=== PATIENT | male | born 1980 | race Caucasian/White ===

== ENCOUNTER 2023-02-03 17:29 | Outpatient (CLI) | payer MEDICAID | END 2023-02-03 17:30 | disposition critical access hospital (66) | LOC: EMS 17:29 | DX: Z04.6 Encounter for general psychiatric examination, requested by authority (principal) | CPT/HCPCS: A0425; A0429; A0999 ==

== ENCOUNTER 2023-02-03 17:48 | Emergency (ER) | payer MEDICAID ==
--- NOTE | 2023-02-03 17:58 | ED Physician Documentation ---
History of Present Illness - Stated complaint Stated Complaint: ETOH/ SZ - History obtained from History obtained from: Patient, EMS - History of Present Illness Pain level max: 0 Pain level now: 0 - Additonal information Additional information: Patient is a 42-year-old male who is brought in by EMS. He reportedly has a longstanding history of alcoholism. He states that a friend brought him from [place] to [place] and dropped him off at [facility]. He states that they would not let him inside so he apparently threw an object at the door and left. The police found him on the sidewalk. They called 911 to have him brought here. There was a question of potential seizure activity, but the patient did not have any postictal period. Patient states that he has a history of seizures and he is supposed to be on Keppra but has not taken his medications. He states he has a history of opiate abuse and is supposed to be on Suboxone. He states he does not want to go to rehab but he wants to go to detox. 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 He states he has never met his honing machine operator or spoken to his honing machine operator. Review of Systems Unable to obtain: Intoxicated PD PAST MEDICAL HISTORY - Past Medical History Past Medical History: Yes Neuro: Seizure disorder - Allergies Allergies/Adverse Reactions: Allergies Allergy/AdvReac Type Severity Reaction Status Date / Time morphine Allergy Unknown Verified 02/03/23 18:03 - Living Situation Living Arrangement: reports: Unknown - Social History Does the pt drink ETOH?: Yes Does the pt have substance abuse?: Yes Substance Use and Type: Meth - Family History Family history: reports: Non contributory PD ED PE NORMAL - Vitals Vital signs reviewed: Yes - General General: Alert and oriented X 3, No acute distress, Well developed/nourished, Other (Intoxicated) - HEENT HEENT: Atraumatic, PERRL, Moist mucous membranes, Pharynx benign - Neck Neck: Supple, no meningeal sign, No bony TTP - Cardiac Cardiac: RRR - Respiratory Respiratory: No respiratory distress, Clear bilaterally - Abdomen Abdomen: Soft, Non tender, Non distended - Derm Derm: Warm and dry - Extremities Extremities: No tenderness to palpate - Neuro Neuro: Alert and oriented X 3, linen sorter 2-12 intact, No motor deficit, No sensory deficit, Normal speech Eye Opening: Spontaneous Motor: Obeys Commands Verbal: Oriented GCS Score: 15 Results - Vitals Vitals: Vital Signs - 24 hr 02/03/23 02/03/23 18:00 20:42 Temperature 37 C Heart Rate 98 80 Respiratory 14 13 Rate Blood Pressure 115/70 126/71 O2 Saturation 98 100 Oxygen O2 Source Room air - Labs Labs: Laboratory Tests 02/03/23 02/03/23 02/03/23 18:00 18:03 18:03 WBC 9.4 RBC 4.36 L Hgb 12.1 L Hct 37.9 L MCV 86.9 MCH 27.8 MCHC 31.9 L RDW 14.3 Plt Count 506 H MPV 8.5 Neut # (Auto) 5.3 Lymph # (Auto) 2.8 [place] # (Auto) 1.1 H Eos # (Auto) 0.1 Baso # (Auto) 0.1 Absolute Nucleated RBC 0.00 Nucleated RBC % 0.0 Sodium 135 Potassium 3.7 Chloride 97 L Carbon Dioxide 24 Anion Gap 14.0 H BUN 11 Creatinine 0.7 Estimated GFR (MDRD) 123 Glucose 103 H Calcium 9.0 Total Bilirubin 1.0 AST 48 H ALT 25 Alkaline Phosphatase 83 Total Protein 7.4 Albumin 4.1 Globulin 3.3 Albumin/Globulin Ratio 1.2 Lipase 30 TSH Urine Color YELLOW Urine Clarity CLEAR Urine pH 6.0 Ur Specific Fossil <=1.005 Urine Protein NEGATIVE Urine Glucose (UA) NEGATIVE Urine Ketones NEGATIVE Urine Occult Blood NEGATIVE Urine Nitrite NEGATIVE Urine Bilirubin NEGATIVE Urine Urobilinogen 0.2 (NORMAL) Ur Leukocyte Esterase NEGATIVE Ur Microscopic Review NOT INDICATED Urine Culture Comments NOT INDICATED Salicylates < 6.0 Urine Opiates Screen NEGATIVE Ur Oxycodone Screen NEGATIVE Urine Methadone Screen NEGATIVE Ur Propoxyphene Screen NEGATIVE Acetaminophen < 10 L Ur Barbiturates Screen NEGATIVE Ur Tricyclics Screen NEGATIVE Ur Phencyclidine Scrn NEGATIVE Ur Amphetamine Screen NEGATIVE U Methamphetamines Scrn POSITIVE H U Benzodiazepines Scrn NEGATIVE Urine Cocaine Screen NEGATIVE U Cannabinoids Screen NEGATIVE Ethyl Alcohol 234.0 02/03/23 18:03 WBC RBC Hgb Hct MCV MCH MCHC RDW Plt Count MPV Neut # (Auto) Lymph # (Auto) [place] # (Auto) Eos # (Auto) Baso # (Auto) Absolute Nucleated RBC Nucleated RBC % Sodium Potassium Chloride Carbon Dioxide Anion Gap BUN Creatinine Estimated GFR (MDRD) Glucose Calcium Total Bilirubin AST ALT Alkaline Phosphatase Total Protein Albumin Globulin Albumin/Globulin Ratio Lipase TSH 0.51 Urine Color Urine Clarity Urine pH Ur Specific Fossil Urine Protein Urine Glucose (UA) Urine Ketones Urine Occult Blood Urine Nitrite Urine Bilirubin Urine Urobilinogen Ur Leukocyte Esterase Ur Microscopic Review Urine Culture Comments Salicylates Urine Opiates Screen Ur Oxycodone Screen Urine Methadone Screen Ur Propoxyphene Screen Acetaminophen Ur Barbiturates Screen Ur Tricyclics Screen Ur Phencyclidine Scrn Ur Amphetamine Screen U Methamphetamines Scrn U Benzodiazepines Scrn Urine Cocaine Screen U Cannabinoids Screen Ethyl Alcohol PD Medical Decision Making - ED course Complexity details: reviewed results, re-evaluated patient, considered differential, d/w patient Reviewed Lab Results: CBC shows a mild anemia, otherwise no significant abnormalities. Chemistry is do not show any significant acute abnormalities. Urinalysis is negative. Toxicology screen positive for methamphetamines. EtOH level 234. ED course: 42-year-old male presents requesting detox. He is intoxicated. No social work is available tonight. We will allow him to sober in the ER and consult social work in the morning. Patient is not suicidal or homicidal. He is not on an involuntary hold. He was given Keppra as his usual medication for seizures. Patient will be signed out to the oncoming emergency department physician. Departure - Departure Clinical Impression: Seizure disorder Alcohol intoxication Qualifiers: Complication of substance-induced condition: uncomplicated Qualified Code(s): F10.920 - Alcohol use, unspecified with intoxication, uncomplicated Condition: Stable
[2023-02-03 18:05] LABS: MUDS CUTOFF CONCENTRATIONS CUTOFF CONC BELOW:
[2023-02-03 18:10] LABS: BASOPHILS # (AUTO) 0.1 10^3/uL (0.0-0.1); BASOPHILS % (AUTO) 0.7 %; EOSINOPHILS # (AUTO) 0.1 10^3/uL (0.0-0.7); EOSINOPHILS % (AUTO) 1.3 %; HCT - HEMATOCRIT 37.9 % (42.0-52.0); HGB - HEMOGLOBIN 12.1 g/dL (14.0-18.0); LYMPHOCYTES # (AUTO) 2.8 10^3/uL (1.5-3.5); LYMPHOCYTES % (AUTO) 29.9 %; MEAN CORPUSCULAR HEMOGLOBIN 27.8 pg (27.0-31.0); MEAN CORPUSCULAR HGB CONC 31.9 g/dL (32.0-36.0); MEAN CORPUSCULAR VOLUME 86.9 fL (80.0-94.0); MEAN PLATELET VOLUME 8.5 fL (7.4-11.4); MONOCYTES # (AUTO) 1.1 10^3/uL (0.0-1.0); MONOCYTES % (AUTO) 11.4 %; NEUTROPHILS # (AUTO) 5.3 10^3/uL (1.5-6.6); NEUTROPHILS % (AUTO) 56.5 %; PLT - PLATELET COUNT 506 10^3/uL (130-450); RED BLOOD COUNT 4.36 10^6/uL (4.70-6.10); RED CELL DISTRIBUTION WIDTH 14.3 % (12.0-15.0); WHITE BLOOD COUNT 9.4 x10^3/uL (4.8-10.8)
[2023-02-03 18:13] LABS: BILIRUBIN,URINE NEGATIVE (NEGATIVE); GLUCOSE, URINE (UA) NEGATIVE (NEGATIVE); KETONES,URINE (UA) NEGATIVE (NEGATIVE); LEUKOCYTE ESTERASE, URINE NEGATIVE (NEGATIVE); NITRITE,URINE NEGATIVE (NEGATIVE); OCCULT BLOOD,URINE NEGATIVE (NEGATIVE); PROTEIN,URINE NEGATIVE (NEGATIVE); UROBILINOGEN,URINE 0.2 (NORMAL) E.U./dL (NORMAL)
[2023-02-03 18:16] LABS: CLARITY,URINE CLEAR (CLEAR)
[2023-02-03 18:24] LABS: ACETAMINOPHEN < 10 ug/mL (10-30); ALBUMIN 4.1 g/dL (3.2-5.5); ALBUMIN/GLOBULIN RATIO 1.2 (1.0-2.2); ALKALINE PHOSPHATASE 83 IU/L (42-121); ALT ALANINE AMINOTRANSFERASE 25 IU/L (10-60); AST ASPARTATE AMINOTRANSFERASE 48 IU/L (10-42); BUN - BLOOD UREA NITROGEN 11 mg/dL (6-20); CARBON DIOXIDE - CO2 24 mmol/L (21-32); CHLORIDE 97 mmol/L (101-111); CREATININE 0.7 mg/dL (0.6-1.2); GFR - MDRD 123 (>89); GLUCOSE 103 mg/dL (70-100); LIPASE 30 U/L (22-51); POTASSIUM 3.7 mmol/L (3.5-5.0); SALICYLATE < 6.0 mg/dL; SODIUM 135 mmol/L (135-145); TOTAL PROTEIN 7.4 g/dL (6.7-8.2)
[2023-02-03 18:35] LABS: THC CANNABINOID SCREEN, URINE NEGATIVE (NEGATIVE)
[2023-02-03 18:36] LABS: AMPHETAMINE SCREEN,URINE NEGATIVE (NEGATIVE); BARBITURATE SCREEN,UR NEGATIVE (NEGATIVE); BENZODIAZEPINES SCREEN, URINE NEGATIVE (NEGATIVE); COCAINE SCREEN URINE NEGATIVE (NEGATIVE); METHADONE SCREEN, URINE NEGATIVE (NEGATIVE); METHAMPHETAMINES SCREEN, URINE POSITIVE (NEGATIVE); OPIATE SCREEN, URINE NEGATIVE (NEGATIVE); OXYCODONE SCREEN, URINE NEGATIVE (NEGATIVE); PROPOXYPHENE SCREEN, URINE NEGATIVE (NEGATIVE); TRICYCLIC ANTIDEPRESSANT,URINE NEGATIVE (NEGATIVE)
[2023-02-03] MEDS ORDERED: levETIRAcetam 250 MG TABLET PO STA (18:40)
[2023-02-03 20:42] VITALS: BP 126/71
[2023-02-04] MEDS ORDERED: BUPRENORPHINE/NALOXONE 8-2 MG TAB SL STA (10:00)
[2023-02-04] MEDS ORDERED: chlordiazePOXIDE 25 MG CAPSULE PO STA (10:00)
--- NOTE | 2023-02-04 10:09 | ED Physician Documentation ---
ED Addendum - Addendum Addendum: 02/04/23 10:06 The patient apparently slept well through the night. He woke this morning was a bit agitated. Mildly shaky. No nausea or vomiting. Repeat alcohol level was 0. He did become a bit belligerent and wanting to be discharged. I told him we are happy to discharge him. I asked if he would like medication to help with withdrawal and also he had not had his daily dose of the Suboxone. He said he would like those. Again he was a little bit belligerent and yelling at some of the staff about being incompetent care. Karla Buckner was called and the patient calmed while he was here. I ordered some Librium p.o. here and a dose of his Suboxone. A I wrote prescriptions for phenobarbital over 6 days and Librium as needed. He states he is Suboxone had been taken and so I wrote a prescription for 3 films to use until he is able to get a refill from his primary care. He asked that the prescription be sent to [facility]. The patient left without his instructions but presumably will be expecting the prescriptions available at the pharmacy. Disposition: The patient is discharged home in stable condition. Diagnoses: 1. Alcohol intoxication 2. Alcohol dependence with early withdrawal 3. Opioid dependence
== END 2023-02-04 10:11 | disposition home or self-care (01) ==
LOC: ED 17:48
DX: F10.239 Alcohol dependence with withdrawal, unspecified (principal); F10.229 Alcohol dependence with intoxication, unspecified; Y90.7 Blood alcohol level of 200-239 mg/100 ml; F11.20 Opioid dependence, uncomplicated; G40.909 Epilepsy, unspecified, not intractable, without status epilepticus
CPT/HCPCS: 36415; 80053; 80306; 80307; 80320; 80329; 81003; 83690; 84443; 85025; 99283; A9270; 81001; 87086

== ENCOUNTER 2023-02-04 22:54 | Outpatient (CLI) | payer MEDICAID | END 2023-02-04 23:59 | disposition other institution (70) | LOC: EMS 22:54 | DX: R40.4 Transient alteration of awareness (principal); M54.9 Dorsalgia, unspecified; G89.29 Other chronic pain | CPT/HCPCS: A0425; A0429 ==

== ENCOUNTER 2023-02-04 23:07 | Emergency (ER) | payer MEDICAID ==
--- NOTE | 2023-02-04 23:13 | ED Physician Documentation ---
History of Present Illness - Stated complaint Stated Complaint: CHRONIC BACK PAIN - History obtained from History obtained from: Patient (limited HPI due to patient's behavior (see below)), EMS - Additonal information Additional information: Patient is brought in by [facility] after initially having been evaluated by ALS in the field. Per the report received over the phone from ALS to ED RN, a passerby called 911 due to patient being passed out on the sidewalk in front of a local [employer]. ALS arrived to find patient in the same location as the 911 call light indicated, arousable to voice and saying he wanted to go to the hospital for detox. He was also complaining of chronic low back pain at that time. I initiated my attempts to gather information (HPI) the moment patient was brought into room 3 in the emergency department while he was still on the S stretcher. Initially, he was refusing to move over onto the ER stretcher, not giving any specific reason. Eventually myself and other ED staff were able to explain to the patient that he needs to scoot over onto the ER stretcher and eventually he did so. Patient immediately pulls blanket over his head. I gently pulled the blanket down so that I could interview him, and asked him what I can do for him on [facility]'s emergency department visit, and his reply is "nothing". When I ask him a second time, as well as a third time, he answers on both of these attempts with "I do not care". To this point, he is not opening eyes, not making any eye contact. He then opens his eyes, and makes eye contact with me, and tells me "I was just here this morning". He says "no one did anything for me". Having already reviewed the notes from this previous visit (patient was discharged Approximately 12 hours prior to [facility]'s ER visit), I said to him that he had a fair amount done, including blood tests, a social work consult, was given medications in the emergency department, and was prescribed several medications. He immediately became very agitated with me, at times raising his hand close to my face despite repeated requests for me to lower his hands so that we could talk. He says that the hospital social worker "sucked", That medications were not offered to him until "I was here for several hours", and that no prescriptions were provided. I explained to him that the reason medications were not given to him until late in his stay is because he slept for most of the overnight shift (I was on duty on this overnight shift), and it was only when he was woken by the oncoming/day ED physician that discussion of medications was appropriate. I was next going to explain to the patient that prescriptions were electronically submitted to the [facility] pharmacy in [place] per the ER MDs note that I reviewed. However, at this point the patient had become so agitated and belligerent that he repeatedly interrupted me, would not let me finish any more sentences, repeatedly told me "your [facility] accent doesn't threaten me". I tried several more times to converse with patient to try to ascertain what could be done for him tonight, but he continued to yell at me and interrupt any further attempts for me to get a full sentence completed. He is calling me several different expletives and I thus walked out of the room at this point. Review of Systems Unable to obtain: Uncooperative PD PAST MEDICAL HISTORY - Past Medical History Neuro: Seizure disorder - Present Medications Home Medications: Ambulatory Orders Medication Instructions Recorded Confirmed Buprenorphine HCl/Naloxone HCl 1 each SL DAILY #3 film 02/04/23 [Suboxone 8 mg-2 mg Sl Film] PHENobarbitaL [Phenobarbital] 30 mg PO BID 6 Days #9 tablet 02/04/23 chlordiazePOXIDE [Librium] 25 mg PO Q6H PRN #25 cap 02/04/23 - Allergies Allergies/Adverse Reactions: Allergies Allergy/AdvReac Type Severity Reaction Status Date / Time morphine Allergy Unknown Verified 02/03/23 18:03 - Social History Does the pt drink ETOH?: Yes Does the pt have substance abuse?: Yes PD ED PE NORMAL - Vitals Vital signs reviewed: Yes - General General: Well developed/nourished, Other (awake, alert, loud and belligerent as noted in HPI) - Neuro Eye Opening: To Voice Motor: Obeys Commands Verbal: Oriented GCS Score: 14 Results - Vitals Vitals: Vital Signs - 24 hr 02/04/23 02/04/23 23:12 23:34 Heart Rate 85 84 Respiratory 17 18 Rate Blood Pressure 112/76 110/98 H O2 Saturation 97 100 Oxygen O2 Source Room air PD Medical Decision Making - ED course Complexity details: reviewed old records, considered differential, d/w patient ED course: Prior to patient's ED arrival , EMS called to ED RN to give report. I reviewed this report and recognized patient's name: he had presented to this ED yesterday under similar circumstances. He was initially evaluated by my ED colleague Dr. Barrios, and I received sign out at the beginning of my overnight shift last night. Patient slept through most of my shift (waking briefly when he was changed to a different ED room; at that time, he was pacing in the hallway , yelling at staff and insisting that he was being ignored, then fell back asleep when he was placed into room 12 of the ED). At the end of my overnight shift, ending earlier this morning (02/04/2023), I turned the care of this patient over to the oncoming ED physician (Dr. Mitchell). Because I recognize the patient's name shortly after the ED RN received EMS report, I reviewed the notes from Dr. Mitchell as well as the social workers notes. The social workers note indicates that efforts were made to find placement for this patient at a detox facility, but challenges were faced due to A history of threatening behaviors and verbal threats at detox facilities in the recent past. Dr. Mitchell's note indicates that the patient was exhibiting some agitation, at times becoming belligerent, and then wanting to be discharged. Dr. Mitchell's notes indicate that Librium and Suboxone were ordered in the emergency department, and prescriptions for phenobarbital, Librium were electronically submitted to [facility] pharmacy in [place]. However, patient apparently left prior to receiving his discharge instructions. As noted above in my HPI, patient was loud, belligerent, and swearing at me very shortly after his arrival to the emergency department. Despite repeated attempts to converse with patient in a calm and reassuring voice, he became increasingly agitated, repeatedly and consistently interrupting me., His speech is clear and articulate, he is not exhibiting behaviors that would suggest visual or auditory hallucinations. At this time, I do not have any information that would suggest there is a medical emergency and I thus discharged from the emergency department. Police were called due to his belligerent behavior, and police escorted patient out of the emergency department of the premises. Departure - Departure Disposition: 01 Home, Self Care Clinical Impression: Alcohol intoxication Qualifiers: Complication of substance-induced condition: uncomplicated Qualified Code(s): F10.920 - Alcohol use, unspecified with intoxication, uncomplicated Chronic back pain Qualifiers: Back pain location: low back pain Back pain laterality: unspecified Sciatica presence: unspecified whether sciatica present Qualified Code(s): M54.50 - Low back pain, unspecified Condition: Good Instructions: ED Alcohol Intoxication Comments: When you were discharged less than 12 hours ago from this emergency department, the emergency department physician explained to you that prescriptions were electronically submitted (which is why you were not given paper prescriptions) to the [facility] pharmacy in [place] for Suboxone, Librium, and phenobarbital. I recommend that you pick these up in the morning when the pharmacy opens. Discharge Date/Time: 02/04/23 23:44
[2023-02-04 23:37] VITALS: BP 110/98
== END 2023-02-04 23:44 | disposition home or self-care (01) ==
LOC: EDUNIT# → ED 23:07
DX: M54.50 Low back pain, unspecified (principal); G89.29 Other chronic pain; F10.920 Alcohol use, unspecified with intoxication, uncomplicated
CPT/HCPCS: 99283